=== PATIENT | male | born 1960 | race Caucasian/White ===

== ENCOUNTER 2016-12-20 10:33 | Emergency (ER) | payer MEDICARE, OTHER | END 2016-12-20 14:00 | disposition home or self-care (01) | LOC: ER1 10:33 | DX: S63.501A Unspecified sprain of right wrist, initial encounter (principal); S70.01XA Contusion of right hip, initial encounter; J44.9 Chronic obstructive pulmonary disease, unspecified; F17.200 Nicotine dependence, unspecified, uncomplicated; W10.9XXA Fall (on) (from) unspecified stairs and steps, initial encounter; Y92.009 Unspecified place in unspecified non-institutional (private) residence as the place of occurrence of the external cause | CPT/HCPCS: 73110; 73502; 73552; 99283 ==

== ENCOUNTER 2021-01-29 10:33 | Inpatient (IN) | payer MEDICARE, MEDICAID ==
[~2021-01-29] VITALS: Ht 182.9 cm; Wt 79.4 kg
[~2021-01-29 10:33] MED LIST: ASPIRIN EC81 MG PO; CARDIZEM 60MG T60 MG PO; LEVOFLOXACIN500 MG PO; NAPROSYN500 MG PO; OMNICEF 300 MG300 MG PO; PROVENTIL HFA6.7 GM INH; ZITHROMAX500 MG PO
[2021-01-29 11:07] LABS: HEMOGLOBIN 13.9 gm/dl (14.0-17.5); RED BLOOD COUNT 4.73 M/UL (4.20-5.50); WHITE BLOOD COUNT 7.2 K/UL (4.5-11.0)
[2021-01-29 11:30] LABS: BUN/CREATININE RATIO 20 (0-10)
[2021-01-30 03:42] LABS: RED BLOOD COUNT 4.07 M/UL (4.20-5.50); WHITE BLOOD COUNT 11.5 K/UL (4.5-11.0)
[2021-01-30 04:26] LABS: BUN/CREATININE RATIO 19 (0-10)
--- NOTE | 2021-01-30 05:02 | NUR ---
0400 pt has snacks at bedside. Pt eats on them when awake.
[2021-01-30] MEDS ORDERED: IBUPROFEN200 M1 PO (10:10)
[2021-01-31 03:23] LABS: WHITE BLOOD COUNT 12.1 K/UL (4.5-11.0)
[2021-01-31 03:26] LABS: RED BLOOD COUNT 3.62 M/UL (4.20-5.50)
[2021-01-31 03:43] LABS: BUN/CREATININE RATIO 19 (0-10)
[2021-02-01 02:54] LABS: HEMOGLOBIN 11.6 gm/dl (14.0-17.5); RED BLOOD COUNT 3.86 M/UL (4.20-5.50)
[2021-02-01 03:17] LABS: BUN/CREATININE RATIO 17 (0-10)
[2021-02-01] MEDS ORDERED: KEFLEX750 MG PO (08:55)
[2021-02-01] MEDS ORDERED: ENOXAPARIN40 MG/0.4 SC (08:55)
[2021-02-01] MEDS ORDERED: HYDROCODON-ACE1 EAC6 PO (13:25)
--- NOTE | 2021-02-01 17:59 | NUR ---
Home Health services called. Unable to give report. The sales representative [employer] stated that "They did not get a chance to run the patient information tonight. They will try again first thing in the morning."
[2021-02-23] MEDS ORDERED: MOTRIN IB200 M1 PO (14:43)
== END 2021-02-01 18:17 | disposition home or self-care (01) | DRG 492 ==
LOC: ER1 10:33 → CDU 12:26 → M/S 12:26
PROVIDERS: Emergency Medicine; Orthopaedic Surgery; ADMIT Surgery
PROC: 0QSG05Z Reposition Right Tibia with External Fixation Device, Open Approach (ICD-10-PCS; 2021-01-29)
PROC: 0QSJ05Z Reposition Right Fibula with External Fixation Device, Open Approach (ICD-10-PCS; principal; 2021-01-29 14:31)
DX: S82.301B Unspecified fracture of lower end of right tibia, initial encounter for open fracture type I or II (principal); S82.401B Unspecified fracture of shaft of right fibula, initial encounter for open fracture type I or II; Z20.822 Contact with and (suspected) exposure to COVID-19; F17.210 Nicotine dependence, cigarettes, uncomplicated; W17.89XA Other fall from one level to another, initial encounter
CPT/HCPCS: 36415; 70450; 71045; 71111; 71260; 72125; 72128; 72131; 72170; 73590; 73600; 76000; 80048; 80053; 80307; 81001; 83605; 85025; 85610; 85730; 86850; 86900; 86901; 90715; 99285; C1713; G0480; J0171; J0690; J1100; J1170; J1650; J1885; J2001; J2060; J2405; J2704; J2795; J3010; J3370; J7120; Q9967; U0002

== ENCOUNTER 2021-02-25 07:56 | Day surgery (SDC) | payer MEDICARE, MEDICAID ==
[~2021-02-25] VITALS: Ht 182.9 cm; Wt 79.4 kg
[~2021-02-25 07:56] MED LIST changes: +ENOXAPARIN40 MG/0.4 SC; +HYDROCODON-ACE1 EAC6 PO; +IBUPROFEN200 M1 PO; +KEFLEX750 MG PO; +MOTRIN IB200 M1 PO
[2021-02-25 09:03] LABS: HEMOGLOBIN 13.7 gm/dl (14.0-17.5); RED BLOOD COUNT 4.52 M/UL (4.20-5.50); WHITE BLOOD COUNT 6.7 K/UL (4.5-11.0)
[2021-02-25 09:40] LABS: BUN/CREATININE RATIO 17 (0-10)
[2021-02-25] MEDS ORDERED: HYDROCODON-ACE1 EAC6 PO ×2 (10:32→11:27)
[2021-02-25] MEDS ORDERED: LOVENOX40 MG/0.4 SC (14:42)
[2021-02-26] MEDS ORDERED: ASPIRIN 325MG325 MG PO (10:26)
== END 2021-02-26 12:10 | disposition home or self-care (01) ==
LOC: OR 07:56 → M/S 07:56 → OR 14:15 → M/S 18:00 → OR 02-26 12:10
PROVIDERS: Orthopaedic Surgery
DX: S82.301A Unspecified fracture of lower end of right tibia, initial encounter for closed fracture (principal); S82.401A Unspecified fracture of shaft of right fibula, initial encounter for closed fracture; J44.9 Chronic obstructive pulmonary disease, unspecified; F41.9 Anxiety disorder, unspecified; F17.210 Nicotine dependence, cigarettes, uncomplicated; Z88.1 Allergy status to other antibiotic agents; Z79.899 Other long term (current) drug therapy; W13.2XXA Fall from, out of or through roof, initial encounter
CPT/HCPCS: 36415; 73610; 76000; 80048; 85025; C1713; C1762; J0171; J1100; J1170; J2001; J2250; J2405; J2704; J2710; J2795; J3010; J7120